=== PATIENT | male | born 1965 | race Caucasian/White ===

== ENCOUNTER 2020-10-22 19:18 | Inpatient (IN) | payer OTHER ==
[2020-10-22 20:16] VITALS: BMI 23.7
[2020-10-22] MEDS ORDERED: MAGNESIUM HYDROX 2400MG/30ML ORAL SUSPENSION 30 ML CUP PO PRN (22:13)
[2020-10-22] MEDS ORDERED: ACETAMINOPHEN 325 MG TABLET (FP) PO PRN ×2 (22:13)
[2020-10-22] MEDS ORDERED: guaiFENesin 200 MG/10 ML 10 ML UNIT-DOSE CUPS PO PRN (22:13)
[2020-10-22] MEDS ORDERED: ONDANSETRON *ODT* 4 MG TABLET SL PRN (22:13)
[2020-10-22] MEDS ORDERED: P-EPHED 60MG/TRIPROLIDI 2.5MG TABLET PO PRN (22:13)
[2020-10-22] MEDS ORDERED: DICYCLOMINE HCL 10 MG CAPSULE PO PRN (22:13)
[2020-10-22] MEDS ORDERED: MENTHOL/PHENOL 1 EACH UD MM PRN (22:13)
[2020-10-22] MEDS ORDERED: METHOCARBAMOL 500 MG TABLET PO PRN (22:13)
[2020-10-22] MEDS ORDERED: IBUPROFEN 400 MG TABLET (FP) PO PRN (22:13)
[2020-10-22] MEDS ORDERED: BISMUTH SUBSALICYLATE 524 MG/30 ML UD PO PRN (22:13)
[2020-10-22] MEDS ORDERED: MAGNESIUM CITRATE 300 ML BOTTLE PO PRN (22:13)
[2020-10-22] MEDS ORDERED: MAG HYDROX/AL HYDROX/SIMETH 30 ML UNIT-DOSE CUP PO PRN (22:13)
[2020-10-22] MEDS ORDERED: chlordiazePOXIDE HCL 25 MG CAPSULE ONE (23:15)
[2020-10-22] MEDS: chlordiazePOXIDE HCL 25 MG CAPSULE PO SCH (23:17)
[2020-10-23] MEDS: chlordiazePOXIDE HCL 25 MG CAPSULE PO PRN ×3 (01:23→14:19)
[2020-10-23] MEDS: GABAPENTIN 300 MG CAPSULE PO SCH ×3 (05:38→22:40)
[2020-10-23] MEDS: chlordiazePOXIDE HCL 25 MG CAPSULE PO SCH ×4 (05:39→22:40)
[2020-10-23] MEDS: hydrOXYzine PAMOATE 25 MG CAPSULE (FP) PO SCH ×5 (06:02→22:50)
[2020-10-23] MEDS: metFORMIN HCL 500 MG TABLET (FP) PO SCH ×2 (06:02→16:30)
[2020-10-23] MEDS ORDERED: INSULIN SLIDING SCALE (NOVOLOG) 1 VIAL SQ ONE (07:17)
[2020-10-23] MEDS: NICOTINE 21 MG/24 HOURS TOPICAL PATCH TD SCH (10:23)
[2020-10-23] MEDS: ASPIRIN 81 MG CHEWABLE TABLETS PO SCH (10:23)
[2020-10-23] MEDS: PRENATAL VITAMINS W/ FOLIC ACID TABLET (FP) PO SCH (10:24)
[2020-10-23] MEDS: THIAMINE HCL 100 MG TABLET (FP) PO SCH (22:40)
[2020-10-23] MEDS: QUEtiapine FUMARATE 100 MG TABLET (FP) PO SCH (22:40)
[2020-10-23] MEDS: MELATONIN 5 MG TABLETS PO SCH (22:40)
[2020-10-24] MEDS: chlordiazePOXIDE HCL 25 MG CAPSULE PO SCH ×4 (06:51→22:16)
[2020-10-24] MEDS: metFORMIN HCL 500 MG TABLET (FP) PO SCH ×2 (06:52→17:31)
[2020-10-24] MEDS: GABAPENTIN 300 MG CAPSULE PO SCH ×3 (06:52→22:17)
[2020-10-24] MEDS: hydrOXYzine PAMOATE 25 MG CAPSULE (FP) PO SCH ×3 (06:52→13:04)
[2020-10-24] MEDS: PRENATAL VITAMINS W/ FOLIC ACID TABLET (FP) PO SCH (10:51)
[2020-10-24] MEDS: CITALOPRAM HYDROBROMIDE 20 MG TABLET PO SCH (10:51)
[2020-10-24] MEDS: ASPIRIN 81 MG CHEWABLE TABLETS PO SCH (10:51)
[2020-10-24] MEDS: NICOTINE 21 MG/24 HOURS TOPICAL PATCH TD SCH (10:52)
[2020-10-24] MEDS: NICOTINE POLACRILEX 2 MG GUM BUC PRN ×3 (10:57→18:06)
[2020-10-24 12:17] LABS: POTASSIUM 3.6 mmol/L (3.5-5.1)
[2020-10-24 12:20] LABS: ALBUMIN 3.4 g/dl (3.4-5.0); BLOOD UREA NITROGEN 12.7 mg/dL (7-18); CALCIUM 8.9 mg/dL (8.5-10.1)
[2020-10-24 12:20] LABS: HEMATOCRIT 41.2 % (35.4-49); HEMOGLOBIN 13.6 GM/dL (11.7-16.9); MCH 31.2 pg (25.7-33.7); MCHC 33.1 g/dl (32.0-35.9); MEAN CELL VOLUME 94.3 fl (80-96); MEAN PLT VOLUME 10.5 fl (7.5-11.1); PLATELET COUNT 156 K/MM3 (134-434); RBC 4.37 M/mm3 (4.00-5.60); RDW 16.5 % (11.9-15.9); WHITE BLOOD COUNT 5.2 K/mm3 (4.0-10.0)
[2020-10-24 12:24] LABS: CREATININE 0.8 mg/dL (0.55-1.3)
[2020-10-24 12:26] LABS: BILIRUBIN,TOTAL 1.1 mg/dL (0.2-1); TOT PROT 5.9 g/dl (6.4-8.2)
[2020-10-24 13:17] LABS: HIV INTERPRETATION NEGATIVE (NEGATIVE)
[2020-10-24] MEDS ORDERED: hydrOXYzine PAMOATE 25 MG CAPSULE (FP) PO PRN (15:20)
[2020-10-24 20:27] LABS: URINE APPEARANCE CLEAR; URINE BILIRUBIN NEGATIVE (NEGATIVE); URINE COLOR DK YELLOW; URINE GLUCOSE (UA) 3+ (NEGATIVE); URINE KETONE TRACE (NEGATIVE); URINE LEUK ESTERASE NEGATIVE (NEGATIVE); URINE NITRITE NEGATIVE (NEGATIVE); URINE PROTEIN TRACE (NEGATIVE)
[2020-10-24] MEDS: MELATONIN 5 MG TABLETS PO SCH (22:17)
[2020-10-24] MEDS: QUEtiapine FUMARATE 100 MG TABLET (FP) PO SCH (22:17)
[2020-10-24] MEDS: THIAMINE HCL 100 MG TABLET (FP) PO SCH (22:17)
[2020-10-25] MEDS ORDERED: chlordiazePOXIDE HCL 10 MG CAPSULE PO PRN
[2020-10-25] MEDS: chlordiazePOXIDE HCL 10 MG CAPSULE PO SCH ×4 (06:12→22:30)
[2020-10-25] MEDS: GABAPENTIN 300 MG CAPSULE PO SCH ×3 (06:13→22:30)
[2020-10-25] MEDS: metFORMIN HCL 500 MG TABLET (FP) PO SCH ×2 (06:33→17:43)
[2020-10-25] MEDS: ASPIRIN 81 MG CHEWABLE TABLETS PO SCH (10:12)
[2020-10-25] MEDS: CITALOPRAM HYDROBROMIDE 20 MG TABLET PO SCH (10:12)
[2020-10-25] MEDS: PRENATAL VITAMINS W/ FOLIC ACID TABLET (FP) PO SCH (10:12)
[2020-10-25] MEDS: NICOTINE POLACRILEX 2 MG GUM BUC PRN (10:13)
[2020-10-25] MEDS: NICOTINE 21 MG/24 HOURS TOPICAL PATCH TD SCH (10:13)
[2020-10-25 18:13] VITALS: PULSE 74
[2020-10-25 21:14] VITALS: TEMP 97.3
[2020-10-25] MEDS: QUEtiapine FUMARATE 100 MG TABLET (FP) PO SCH (22:30)
[2020-10-25] MEDS: THIAMINE HCL 100 MG TABLET (FP) PO SCH (22:30)
[2020-10-25] MEDS: MELATONIN 5 MG TABLETS PO SCH (22:30)
[2020-10-26] MEDS ORDERED: chlordiazePOXIDE HCL 10 MG CAPSULE PO SCH (05:00)
[2020-10-26] MEDS ORDERED: chlordiazePOXIDE HCL 10 MG CAPSULE PO ONE (05:00)
[2020-10-26] MEDS: GABAPENTIN 300 MG CAPSULE PO SCH (05:42)
[2020-10-26 06:32] VITALS: BP 130/74
[2020-10-26] MEDS: metFORMIN HCL 500 MG TABLET (FP) PO SCH (07:19)
[2020-10-27] MEDS ORDERED: chlordiazePOXIDE HCL 10 MG CAPSULE PO ONE (05:00)
== END 2020-10-26 08:39 | disposition home or self-care (01) | DRG 775 ==
LOC: YASAS 19:18 → Y3N 10-23 00:43
PROVIDERS: ADMIT Allergy & Immunology; ATTEND Allergy & Immunology
PROC: HZ2ZZZZ Detoxification Services for Substance Abuse Treatment (ICD-10-PCS; principal; 2020-10-23)
DX: F10.230 Alcohol dependence with withdrawal, uncomplicated (principal); F17.213 Nicotine dependence, cigarettes, with withdrawal; F25.1 Schizoaffective disorder, depressive type; F10.282 Alcohol dependence with alcohol-induced sleep disorder; F10.24 Alcohol dependence with alcohol-induced mood disorder; E11.42 Type 2 diabetes mellitus with diabetic polyneuropathy; Z79.84 Long term (current) use of oral hypoglycemic drugs; K21.9 Gastro-esophageal reflux disease without esophagitis; R63.8 Other symptoms and signs concerning food and fluid intake; R74.01 Elevation of levels of liver transaminase levels; R45.89 Other symptoms and signs involving emotional state; Z99.89 Dependence on other enabling machines and devices
CPT/HCPCS: 36415; 80053; 81003; 82962; 85027; 86780; 87389; 93005; 93010; C9803; U0003

== ENCOUNTER 2022-05-05 21:00 | Inpatient (IN) | payer OTHER ==
[2022-05-06] MEDS ORDERED: MAGNESIUM CITRATE 300 ML BOTTLE PO PRN (00:16)
[2022-05-06] MEDS ORDERED: MAG HYDROX/AL HYDROX/SIMETH 30 ML UNIT-DOSE CUP PO PRN (00:16)
[2022-05-06] MEDS ORDERED: DICYCLOMINE HCL 10 MG CAPSULE PO PRN (00:16)
[2022-05-06] MEDS ORDERED: IBUPROFEN 600 MG TABLET (FP) PO PRN (00:16)
[2022-05-06] MEDS ORDERED: ONDANSETRON *ODT* 4 MG TABLET SL PRN (00:16)
[2022-05-06] MEDS ORDERED: METHOCARBAMOL 500 MG TABLET PO PRN (00:16)
[2022-05-06] MEDS ORDERED: guaiFENesin 200 MG/10 ML 10 ML UNIT-DOSE CUPS PO PRN (00:16)
[2022-05-06] MEDS ORDERED: BENZOCAINE/MENTHOL (CHLORASEPTIC ) LOZENGE MM PRN (00:16)
[2022-05-06] MEDS ORDERED: hydrOXYzine PAMOATE 25 MG CAPSULE (FP) PO PRN (00:16)
[2022-05-06] MEDS ORDERED: ACETAMINOPHEN 325 MG TABLET (FP) PO PRN ×2 (00:16)
[2022-05-06] MEDS ORDERED: MAGNESIUM HYDROX 2400MG/30ML ORAL SUSPENSION 30 ML CUP PO PRN (00:16)
[2022-05-06] MEDS ORDERED: NICOTINE POLACRILEX 2 MG GUM BUC PRN (00:16)
[2022-05-06] MEDS ORDERED: IBUPROFEN 400 MG TABLET (FP) PO PRN (00:16)
[2022-05-06] MEDS ORDERED: BISMUTH SUBSALICYLATE 524 MG/30 ML PO PRN (00:16)
[2022-05-06] MEDS ORDERED: P-EPHED 60MG/TRIPROLIDI 2.5MG TABLET PO PRN (00:16)
[2022-05-06] MEDS ORDERED: LOPERAMIDE HCL 2 MG CAPSULE PO PRN (00:16)
[2022-05-06] MEDS ORDERED: chlordiazePOXIDE HCL 25 MG CAPSULE PO PRN (00:19)
[2022-05-06 02:00] VITALS: BMI 19.9
[2022-05-06] MEDS ORDERED: chlordiazePOXIDE HCL 25 MG CAPSULE ONE ×2 (06:44→10:31)
[2022-05-06] MEDS: chlordiazePOXIDE HCL 25 MG CAPSULE PO SCH ×4 (06:50→23:03)
[2022-05-06] MEDS ORDERED: VITAMINS A AND D TOPICAL OINTMENT 60 GM TUBE TP PRN (11:06)
[2022-05-06] MEDS: PRENATAL VITAMINS W/ FOLIC ACID TABLET (FP) PO SCH (12:07)
[2022-05-06] MEDS: PANTOPRAZOLE 20 MG TABLET PO SCH (12:07)
[2022-05-06] MEDS: ASPIRIN 81 MG CHEWABLE TABLETS PO SCH (12:07)
[2022-05-06] MEDS ORDERED: PNEUMOC 20-VAL CONJ-DIP CRM/PF 0.5 ML SYRINGE IM ONE (12:30)
[2022-05-06] MEDS: THIAMINE HCL 100 MG TABLET (FP) PO SCH (23:02)
[2022-05-06] MEDS: ATORVASTATIN CA 40 MG TABLET (FP) PO SCH (23:02)
[2022-05-06] MEDS: GABAPENTIN 300 MG CAPSULE PO SCH (23:03)
[2022-05-06] MEDS: MELATONIN 5 MG TABLETS PO SCH (23:03)
[2022-05-07] MEDS: chlordiazePOXIDE HCL 10 MG CAPSULE PO SCH ×4 (05:54→22:32)
[2022-05-07] MEDS: PANTOPRAZOLE 20 MG TABLET PO SCH (10:37)
[2022-05-07] MEDS: PRENATAL VITAMINS W/ FOLIC ACID TABLET (FP) PO SCH (10:37)
[2022-05-07] MEDS: ASPIRIN 81 MG CHEWABLE TABLETS PO SCH (10:37)
[2022-05-07] MEDS: ATORVASTATIN CA 40 MG TABLET (FP) PO SCH (22:31)
[2022-05-07] MEDS: THIAMINE HCL 100 MG TABLET (FP) PO SCH (22:31)
[2022-05-07] MEDS: GABAPENTIN 300 MG CAPSULE PO SCH (22:31)
[2022-05-07] MEDS: MELATONIN 5 MG TABLETS PO SCH (22:39)
[2022-05-08] MEDS ORDERED: chlordiazePOXIDE HCL 10 MG CAPSULE PO PRN
[2022-05-08] MEDS: chlordiazePOXIDE HCL 10 MG CAPSULE PO SCH ×2 (05:41→18:05)
[2022-05-08] MEDS: PRENATAL VITAMINS W/ FOLIC ACID TABLET (FP) PO SCH (10:51)
[2022-05-08] MEDS: ASPIRIN 81 MG CHEWABLE TABLETS PO SCH (10:51)
[2022-05-08] MEDS: PANTOPRAZOLE 20 MG TABLET PO SCH (10:51)
[2022-05-08 11:05] LABS: HEMATOCRIT 36.7 % (35.4-49); HEMOGLOBIN 12.2 GM/dL (11.7-16.9); MCH 33.3 pg (25.7-33.7); MCHC 33.2 g/dl (32.0-35.9); MEAN CELL VOLUME 100.4 fl (80-96); MEAN PLT VOLUME 10.5 fl (7.5-11.1); PLATELET COUNT 117 10^3/uL (134-434); RBC 3.65 M/mm3 (4.00-5.60); RDW 14.6 % (11.9-15.9); WHITE BLOOD COUNT 4.8 K/mm3 (4.0-10.0)
[2022-05-08 11:10] LABS: CALCIUM 8.9 mg/dL (8.5-10.1)
[2022-05-08 11:11] LABS: ALBUMIN 2.9 g/dl (3.4-5.0); BLOOD UREA NITROGEN 10.2 mg/dL (7-18)
[2022-05-08 11:14] LABS: CREATININE 0.6 mg/dL (0.55-1.3)
[2022-05-08 11:15] LABS: TOT PROT 5.4 g/dl (6.4-8.2)
[2022-05-08 11:16] LABS: BILIRUBIN,TOTAL 1.3 mg/dL (0.2-1)
[2022-05-08] MEDS: THIAMINE HCL 100 MG TABLET (FP) PO SCH (22:20)
[2022-05-08] MEDS: GABAPENTIN 300 MG CAPSULE PO SCH (22:20)
[2022-05-08] MEDS: ATORVASTATIN CA 40 MG TABLET (FP) PO SCH (22:20)
[2022-05-08] MEDS: MELATONIN 5 MG TABLETS PO SCH (22:20)
[2022-05-09] MEDS ORDERED: chlordiazePOXIDE HCL 10 MG CAPSULE PO ONE (05:00)
[2022-05-09 09:55] VITALS: BP 124/69; PULSE 71; RESP 18; TEMP 97.3
[2022-05-09] MEDS: PRENATAL VITAMINS W/ FOLIC ACID TABLET (FP) PO SCH (10:50)
[2022-05-09] MEDS: PANTOPRAZOLE 20 MG TABLET PO SCH (10:50)
[2022-05-09] MEDS: ASPIRIN 81 MG CHEWABLE TABLETS PO SCH (10:50)
== END 2022-05-09 10:15 | disposition home or self-care (01) | DRG 774 ==
LOC: YASAS 21:00 → Y6N 05-06 11:29
PROVIDERS: ADMIT Allergy & Immunology; ATTEND Surgery
PROC: HZ2ZZZZ Detoxification Services for Substance Abuse Treatment (ICD-10-PCS; principal; 2022-05-06)
DX: F10.230 Alcohol dependence with withdrawal, uncomplicated (principal); F14.20 Cocaine dependence, uncomplicated; F12.20 Cannabis dependence, uncomplicated; E78.5 Hyperlipidemia, unspecified; E11.42 Type 2 diabetes mellitus with diabetic polyneuropathy; Z79.84 Long term (current) use of oral hypoglycemic drugs; K21.9 Gastro-esophageal reflux disease without esophagitis; R26.89 Other abnormalities of gait and mobility; Z99.89 Dependence on other enabling machines and devices
CPT/HCPCS: 36415; 80053; 82962; 85027; 86780; 90677; C9803-CS; U0003; U0005